=== PATIENT | male | born 2000 | race Two or more races ===

== ENCOUNTER 2022-10-09 09:55 | Emergency (ER) | payer OTHER, SELFPAY ==
--- NOTE | ~2022-10-09 | US_ITS ---
EXAMINATION: US SCROTUM CLINICAL INFORMATION: Testicular pain. COMPARISON: None available. TECHNIQUE: A sonogram of the scrotum was performed assessing baldwin-scale appearance and color Doppler flow. Spectral Doppler analysis of the arterial and venous flow were performed in the testes bilaterally. FINDINGS: RIGHT: Right testicle measures 3.6 x 2.2 x 2.5 cm, volume 10.5 mL. No focal testicular parenchymal lesions are visualized. Spectral Doppler analysis of the arterial and venous flow is in the right testis. Right epididymal head is normal in size. No right hydrocele or varicocele is seen. Right epididymal Doppler flow is normal. LEFT: Left testicle measures 3.8 x 2.3 x 2.6 cm, volume 11.6 mL. No focal testicular parenchymal lesions are visualized. Spectral Doppler analysis of the arterial and venous flow is in the left testis. Left epididymal head is normal in size. Small left epididymal head cyst 4 x 6 x 5 mm. No left hydrocele or varicocele is seen. Left epididymal Doppler flow is normal. US/US scrotum doppler IMPRESSION: * No ultrasound evidence of testicular torsion. * No intratesticular mass. * Small left epididymal head cyst probably of no clinical significance..
--- NOTE | ~2022-10-09 | US_ITS ---
EXAMINATION: US SCROTUM CLINICAL INFORMATION: Testicular pain. COMPARISON: None available. TECHNIQUE: A sonogram of the scrotum was performed assessing baldwin-scale appearance and color Doppler flow. Spectral Doppler analysis of the arterial and venous flow were performed in the testes bilaterally. FINDINGS: RIGHT: Right testicle measures 3.6 x 2.2 x 2.5 cm, volume 10.5 mL. No focal testicular parenchymal lesions are visualized. Spectral Doppler analysis of the arterial and venous flow is in the right testis. Right epididymal head is normal in size. No right hydrocele or varicocele is seen. Right epididymal Doppler flow is normal. LEFT: Left testicle measures 3.8 x 2.3 x 2.6 cm, volume 11.6 mL. No focal testicular parenchymal lesions are visualized. Spectral Doppler analysis of the arterial and venous flow is in the left testis. Left epididymal head is normal in size. Small left epididymal head cyst 4 x 6 x 5 mm. No left hydrocele or varicocele is seen. Left epididymal Doppler flow is normal. US/US scrotum IMPRESSION: * No ultrasound evidence of testicular torsion. * No intratesticular mass. * Small left epididymal head cyst probably of no clinical significance..
[2022-10-09 10:02] VITALS: BP 128/85; PULSE 90; RESP 16; TEMP 36.8; O2SAT 100; BMI 21.4
--- NOTE | 2022-10-09 10:14 | ED_ITS ---
HPI - Skin/Abscess/Foreign Bdy General Chief complaint: Skin/Abscess/Foreign Body Stated complaint: discomfort in groin area Time Seen by Provider: 10/09/22 10:14 Source: patient Mode of arrival: ambulatory Limitations: no limitations History of Present Illness HPI narrative: 22 year old male with no significant PMH presents with L sided testicle pain that began last night while squatting 110 lbs. Patient denies radiation of symptoms to the lower abdomen or back and has never experienced anything like this before. Patient reports he thinks there is a lump on the left testicle and the area is tender to palpation. Additionally, patient is concerned there may be a lump on the right testicle as well. He says he had a weird sensation for the past week there however no actual pain Related Data Previous Rx's Medication Instructions Recorded doxycycline hyclate 100 mg capsule 100 mg PO BID 10 days #20 caps 10/09/22 Allergies Allergy/AdvReac Type Severity Reaction Status Date / Time No Known Allergies Allergy Unverified 02/28/20 16:53 Review of Systems Review of Systems: Constitutional : No Weight loss, No Fever, No Chills, No Fatigue, No Malaise ENT/Mouth : No sore throat, No Rhinorrhea Eyes: No Eye Pain, No Swelling, No Redness Cardiovascular : No Chest Pain, No SOB, No Dyspnea on Exertion, No Orthopnea, No Edema, No Palpitations Respiratory : No Cough, No Sputum, No Wheezing Gastrointestinal : No Nausea, No Vomiting, No Diarrhea, No Constipation, No abdominal Pain, No Hematochezia, No Melena Genitourinary : No Dysuria, No Urinary Frequency, No Hematuria Musculoskeletal : No joint pain, No Myalgias, No Joint Swelling Skin : No Skin Lesions, No rash Neuro : No Weakness, No Numbness, No Dizziness, No Headache Psych : No Anxiety/Panic, No Depression All other systems reviewed and are negative Yes all other systems are reviewed and are negative [facility] Past Medical History Attestation statement: The following information was validated with the patient. Source: old records reviewed and nursing notes reviewed Social History Social History Advance Directives: No Advance Directives Information Provided: No Physical Exam Vital Signs: Vital Signs: Last Vital Signs Temp 98.2 F 10/09/22 10:02 Pulse 90 10/09/22 10:02 Resp 16 10/09/22 10:02 BP 128/85 04/29/23 10:02 Pulse Ox 100 10/09/22 10:02 O2 Del Method Room Air 10/09/22 10:02 BMI result Body Mass Index 21.4 VSS Appearance: Alert.? Oriented X3.? No acute distress.? Head: Normocephalic, atraumatic, no step-offs or deformities Eyes: Pupils equal, round and reactive to light.? ENT: Pharynx normal.??External ears normal, TMs normal bilaterally and EAC's normal. No pain with manipulation of external ears bilaterally. No mastoid tenderness. CVS: Normal heart rate and rhythm.? Pulses normal.? Respiratory: No respiratory distress.? Breath sounds normal.? Abdomen: Soft and nontender.? Skin: Skin warm and dry.? Normal skin color.? Normal skin turgor.? Extremities: No lower extremity edema.? No calf ttp. 5/5 strength to bilateral upper and lower extremities Back: No midline tenderness, no C-spine tenderness, full range of motion, no CVA tenderness bilaterally Neuro: Oriented X 3.? No motor deficit.? No sensory deficit. CN 2-12 intact Genitalia: [id number] lump on the left testicle, tender to palpation bilaterally, no overlying rashes or skin changes Course Reevaluation(s) Reevaluation #1: Ultrasound with no ultrasound evidence of testicular torsion no intratesticular mass, small left epididymal head cyst probably of no clinical significance however patient does have tenderness to palpation to the area on exam will cover him with prophylactic treatment for STDs although he says he does not think he has 1, will treat with ceftriaxone 500 mg IM once and discharged home on d oxycycline. Will have him follow-up with urology if pain persists. Educated patient on diagnosis and treatment plan, answered all question, patient verbalizes understanding. At this time patient will be discharged home, advised to return with new or worsening symptoms. Educated on worrisome signs and symptoms and when to return. At this time I feel comfortable discharge home. Time: 12:30 Medications Administered Discontinued Medications Generic Name Dose Route Start Last Admin Trade Name Freq PRN Reason Stop Dose Admin Ketorolac Tromethamine 30 mg 10/09/22 12:05 10/09/22 12:15 Ketorolac Tromethamine 15 Mg/Ml Vial IM 10/09/22 12:06 30 mg ONCE ONE Administration Medical Decision Making Medical Decision Making [facility] Narrative: 22 year old male presents with L sided testicular pain and a lump after squatting 110 lbs last night. Denies concerns for STIs. PE: [id number] lump on the left testicle, tender to palpation bilaterally, no overlying rashes or skin changes Plan: imaging, UA Ddx: Hernia ( most likley) vs gonorrhea vs other STI vs epidydimitis vs orchitis vs hydrocele vs lymphadenopathy vs cyst. Less likely testicular torsion, UTI, incarcerated hernia Differential Diagnosis Differential Diagnoses: The differential diagnosis associated with the presentation includes Hernia ( most likley) vs gonorrhea vs other STI vs epidydimitis vs orchitis vs hydrocele vs lymphadenopathy vs cyst. Less likely testicular torsion., UTI, incarcerated hernia Admission/Observation Consideration of admission/observation: Escalation of care including admission/observation considered unlikley Lab Data [facility] Lab Attestation statement: I reviewed the patient's lab results. Labs: Lab Results 10/09/22 Range/Units 11:07 Urine Color Yellow Urine Appearance Clear Urine pH 6.0 (5.0-9.0) Ur Specific Hansen 1.015 (1.005-1.025) Urine Protein Negative (Neg-Trace) mg/dL Urine Glucose (UA) Negative (Negative) mg/dL Urine Ketones Trace (Negative) mg/dL Urine Blood Negative (Negative) Urine Nitrite Negative (Negative) Ur Leukocyte Esterase Negative (Negative) Independent Interpretation I performed an independent interpretation of an: Ultrasound Radiology Impression Discussion of test interpretation with radiology: I have reviewed the radiologist's reading. Prescription Management I considered prescription management with: Antibiotic Core Measures AMI core measures followed: Yes Measure exclusions: not indicated Critical Care Time Critical Care Time Critical Care Time: No Discharge Plan Discharge Clinical Impression: Pain in testicle Patient Disposition: Home, Self-Care Instructions: Testicle Pain (ED), Scrotal Pain (ED) Additional Instructions: Take your medications as prescribed. If you were prescribed antibiotics today, it is important that you take your medication to their entirety, do not skip any doses, do not finish them early. Follow-up with your primary care provider this week. Return to the emergency department with new or worsening symptoms. Such as fevers, chills, chest pain, shortness of breath, nausea, vomiting, dizziness, headache, vision changes, lethargy In case of emergency call 911 Please take doxycycline and antibiotic as prescribed, can cause sensitivity to skin and direct sunlight so please wear sunscreen, hat and avoid direct contact of skin with sunlight while taking this. Follow-up with a specialist/urology if this pain persist. If the pain changes in quality or quantity or severity please return for prompt evaluation You can continue exercising per usual. US/US scrotum IMPRESSION: ? *? No ultrasound evidence of testicular torsion. ? *? No intratesticular mass. ? *? Small left epididymal head cyst probably of no clinical significance.. ? Prescriptions: New doxycycline hyclate 100 mg capsule 100 mg PO BID 10 Days Qty: 20 0RF Referrals: [facility] [Provider Group] - 3 days Physician,Robert J [Primary Care Provider] - 2 days Stand Alone Forms: Work/School Release
--- NOTE | 2022-10-09 11:09 | MHC.EDTECH ---
Urine collected and sent to lab
[2022-10-09 11:16] LABS: Appearance Urine Clear; Color Urine Yellow; Glucose Urine UA Negative (Negative); Leukocyte Esterase Urine Negative (Negative); Nitrite Urine Negative (Negative); Specific Gravity - Urine 1.015 (1.005-1.025); Urine Blood Negative (Negative); Urine Ketones Trace mg/dL (Negative); Urine Protein Negative (Neg-Trace)
[2022-10-09] MEDS: Ketorolac Tromethamine 15 MG/ML VIAL 30 MG IM (12:15)
--- NOTE | 2022-10-09 12:48 | MHC.EDTECH ---
urine sent to lab
[2022-10-09] MEDS: Doxycycline Monohydrate 100 MG CAPSULE PO (12:51)
[2022-10-09] MEDS: cefTRIAXone sodium 500 MG, Lidocaine HCl 1 % MPF 1 ML IM (12:51)
--- NOTE | 2022-10-09 13:30 | PC.NURSE ---
Patient informed this nurse of a penicillin allergy after receiving IM dose of antibiotics. Provider made aware and will monitor patient for the next half hour to ensure no allergic reaction.
[2022-10-09 14:00] VITALS: BP 116/59; PULSE 76; RESP 17; O2SAT 97
[2022-10-09 14:55] LABS: CT PCR NOT DETECTED (Not Detect.); NG PCR NOT DETECTED (Not Detect.)
== END 2022-10-09 14:31 | disposition home or self-care (01) ==
PROVIDERS: Physician Assistant; Emergency Provider Emergency Medicine
DX: N50.812 Left testicular pain (principal); N50.89 Other specified disorders of the male genital organs
CPT/HCPCS: 0353U; 76870; 81003; 93975; 96372; 99284; J0696; J1885

== ENCOUNTER → 2022-12-31 13:46 | Outpatient (BNVA) | payer SELFPAY | PROVIDERS: Visit Provider Physician Assistant | DX: Z02.79 Encounter for issue of other medical certificate (principal) ==

== ENCOUNTER → 2024-07-03 15:48 | Outpatient (BNVA) | payer SELFPAY | PROVIDERS: Visit Provider Registered Nurse | DX: Z02.79 Encounter for issue of other medical certificate (principal) ==